=== PATIENT | male | born 1995 | race Two or more races ===

== ENCOUNTER 2024-07-08 11:08 | Emergency (ER) | payer MEDICAID, SELFPAY ==
[2024-07-08 11:23] VITALS: BP 131/80; PULSE 115; RESP 18; TEMP 38.1; O2SAT 99
--- NOTE | 2024-07-08 11:35 | PD.EDRME ---
Rapid Medical Screening Exam RME Arrival date/time: 07/08/24 11:08 29-year-old male presents to the emergency with history of ankylosing spondylitis and multiple blood clots presents emerged part today for concerns of blood clot in his penis Chief Complaint: Urogenital-Male Vital signs: Vital Signs Temperature 100.5 F H 07/08/24 11:23 Pulse Rate 115 H 07/08/24 11:23 Respiratory Rate 18 07/08/24 11:23 Blood Pressure 131/80 H 07/08/24 11:23 Pulse Oximetry (%) 99 07/08/24 11:23 Oxygen Delivery Method Room Air 07/08/24 11:23
[2024-07-08 12:17] LABS: Basophils % (Auto) 1 % (0-2.5); Eosinophils # (Auto) 0.1 Thou/mm3 (0.0-0.5); Eosinophils % (Auto) 1 % (0-10); Hematocrit 36.8 % (41.0-53.0); Hemoglobin 11.9 g/dL (13.5-16.0); Immature Granulocytes % (Auto) 0 % (0-0); Immature Granulocytes Auto 0.02 Thou/mm3 (0.00-0.00); Lymphocytes # (Auto) 0.8 Thou/mm3 (1.0-4.8); Lymphocytes % (Auto) 9 % (10-50); Mean Corpuscular HGB Conc 32.3 g/dl (31.0-37.0); Mean Corpuscular Hemoglobin 23.8 pg (25.0-35.0); Mean Corpuscular Volume 74 fL (80-100); Monocytes # (Auto) 0.2 Thou/mm3 (0.0-0.8); Monocytes % (Auto) 3 % (0-12); Neutrophils # (Auto) 7.5 Thou/mm3 (1.8-7.7); Neutrophils % (Auto) 87 % (37-80); Nucleated Red Blood Cell % 0 /100 WBC (0); Platelet Count 309 Thou/mm3 (140-440); Red Blood Count 4.99 Miln/mm3 (4.50-5.90); White Blood Count 8.6 Thou/mm3 (3.8-10.6)
--- NOTE | 2024-07-08 12:18 | XR_ITS ---
Examination: CT abdomen and pelvis without contrast. Coronal 3-D reconstructions. Sagittal 2-D reconstructions. Date and time of exam:July 08, 2024 1237 hours Comparison April 05, 2017 INDICATIONS: Penile pain today CTDI: vol (mGy): 5.53 DLP: (mGycm): 327 Technique: Axial images of the abdomen have been obtained, 3 mm slice thickness Intravenous contrast material has not been administered. Low dose protocols were performed. One or more of the following dose reduction techniques were used; automated exposure control, adjustment of the mA and/or KV according to patient size, use of iterative reconstruction technique. Findings: No focal liver or splenic lesions No gallstones No pancreatic mass Subcentimeter periaortic lymph nodes No renal or ureteral calculi, no hydronephrosis Aorta normal size No bowel obstruction Normal appendix No diverticulitis Urinary bladder wall is thickened up to 6 mm No prostatomegaly No stones project in the prostatic or penile urethra The penile urethra does appear dilated with mild hyperdensity in the distal penile urethra, sagittal image 75 consistent with blood clot IMPRESSION: No renal or ureteral calculi The penile urethra does appear dilated with blood in the distal penile urethra, consider stricture of the distal penile urethra, recommend urology consultation
--- NOTE | 2024-07-08 12:25 | XR_ITS ---
Examination: Ultrasound soft tissue penis TECHNIQUE: Grayscale sonographic images soft tissue penis Exam date and time: July 08, 2024 1306 hours INDICATIONS: Pain with intercourse and bleeding from the penis 2 weeks FINDINGS: Thrombus in the dorsal vein of the penis at the area concern IMPRESSION: Thrombus in the dorsal vein of the penis at the area concern
[2024-07-08 12:32] LABS: INR 1.1 (0.9-1.3); Partial Thromboplastin Time 36.5 Seconds (22.0-36.0); Prothrombin Time 11.5 Seconds (9.0-12.2)
[2024-07-08 12:35] LABS: Collection Type, Urine Clean Catch
[2024-07-08 12:42] LABS: Alanine Aminotransferase 10 U/L (10-49); Albumin, Serum 3.9 gm/dL (3.5-5.0); Albumin/Globulin Ratio 0.8 (1.2-2.2); Alkaline Phosphatase 84 U/L (46-116); Anion Gap 8 (7-16); Aspartate Amino Transferase 15 U/L (0-34); BUN/Creatinine Ratio 15 Ratio (12-20); Bilirubin,Total 0.4 mg/dL (0.3-1.2); Blood Urea Nitrogen 12 mg/dL (9-23); Calcium (Corrected) 9.1 mg/dL (8.5-10.1); Carbon Dioxide 25.7 mMol/L (20.0-31.0); Chloride 103 mMol/L (98-107); Creatinine (Component) 0.8 mg/dL (0.6-1.3); Globulin 4.9 gm/dL (2.3-3.5); Glucose 108 mg/dL (74-106); Osmolality,Calculated 274 (275-295); Potassium 4.5 mMol/L (3.4-5.1); Sodium 137 mMol/L (136-145); Total Protein 8.8 gm/dL (5.7-8.2); eGFR > 60 See Note
[2024-07-08 12:52] LABS: Bilirubin,Urine Negative (Negative); Blood,Urine Negative (Negative); Clarity,Urine Clear (Clear/Hazy); Color,Urine Lt-Yellow (Lt Yel-Yel); Culture Indicated,Urine Not Indicated; Glucose, Urine Negative (Negative); Ketones,Urine Negative (Negative); Leukocyte Esterase,Urine Negative (Negative); Nitrite,Urine Negative (Negative); PH,Urine 7.5 (5.0-7.0); Protein,Urine 1+ (Neg - Trace); RBC,Urine 5 /hpf (0-3); Specific Gravity,Urine 1.018 (1.001-1.035); Squamous Epithelial Cell,Urine < 1 /hpf (0-5); Urobilinogen,Urine Negative mg/dL (0.0-1.0); WBC,Urine 1 /hpf (0-5)
[2024-07-08 13:17] LABS: Hepatitis A Antibody IgM Non Reactive (Non React); Hepatitis B Core Antibody IgM Non Reactive (Non React); Hepatitis B Surface Antigen Non Reactive (Non React); Hepatitis C Antibody Non Reactive (Non React)
[2024-07-08 16:40] LABS: Chlamydia trachomatis PCR Negative (Not Detect); Neisseria Gonorrhoeae DNA PCR Negative (Not Detect); Trichomonas Negative (Negative)
[2024-07-08 17:05] VITALS: BP 113/79; PULSE 97; RESP 18; TEMP 36.9; O2SAT 99
--- NOTE | 2024-07-08 17:37 | EDNOTE_ITS ---
ED General RME/HPI General Chief complaint: Urogenital-Male Stated complaint: PENILE PAIN AND SWELLING FEELS LIKE A BLOOD CLOT Arrival date/time: 07/08/24 11:08 RME / HPI RME / HPI narrative: Patient is 29 years old male with past medical history of ankylosing spondylitis and DVT on Eliquis presented to the ED due to pain in his penis. He reports pain started after unprotected sexual intercourse with his girlfriend and his penis became swollen and bluish. He also reports mild pain is right above dorsum of his penis. His pain was severe when the event happened but improved significantly since then. He had difficulty to achieve erection since then. He reports he never had the symptoms before. He was started on Eliquis 1 year ago due to DVT but skips it frequently and was not taking it for several days prior to the event. He denies fever, chills, chest pain, shortness of breath, abdominal pain, penile discharge, testicular pain, dysuria symptoms. Related Data Previous Rx's ?Medication ?Instructions ?Recorded omeprazole 20 mg capsule,delayed 20 mg PO QDAY ##30 release Hydrocodone/Acetaminophen * (NORCO 1 tab PO Q6H PRN PA IN #12 tabs 04/05/17 5/325 *) ibuprofen 600 mg tablet 1 tab PO Q8HR PRN INFLAMMATI ON #30 04/05/17 tabs apixaban 5 mg (74 tabs) tablets in 5 mg PO BID #74 tab s 06/25/23 a dose pack (Eliquis DVT-PE Treat 30D Start) apixaban 5 mg (74 tabs) tablets in 5 mg PO BID #74 tab s 10/19/23 a dose pack (Eliquis DVT-PE Treat 30D Start) hydrocodone 5 mg-acetaminophen 325 1 tab PO Q8H PRN pa in #10 tabs 07/08/24 mg tablet Allergies Allergy/AdvReac Type Severity Reaction Status Date / Time No Known Allergies Allergy Verified 07/08/24 11:13 Review of Systems Review of Systems Systems Reviewed: All systems reviewed, normal except as documented ED Exam Narrative Physical exam: Gen: Well-developed and well-nourished male. HEENT: NCAT, PERRLA, EOMI, MMM, anicteric conjunctivae. CVS: normal S1 and S2. RRR. No M/R/G. Resp: CTA B/L. No rhonchi, rales, crackles or wheezing. Abd: soft, non-tender, non-distended. BS+ in all 4 quadrants. : Tender mass over the right lateral side of his penis, feels like strings on palpation. Tenderness right over the dorsum of the penis. No suprapubic or CVA tenderness. MSK: Good ROM in BUE & BLE. No edema or rash. Left knee is swollen and nontender to touch. Neuro: CN II-XII grossly intact. Strength 5/5 in BUE & BLE. Alert and oriented x3. Psych: appropriate mood and affect. Course Quality Measures none Orders Category Date Time Status CT abdomen pelvis wo con Stat Exams 07/08/24 12:18 Completed US soft tissue lower back abd Stat Exams 07/08/24 12:25 Completed CBC Stat Lab 07/08/24 11:42 Completed Chlamydia/GC/TV - PCR Stat Lab 07/08/24 12:15 Completed Comprehensive Metabolic Panel Stat Lab 07/08/24 11:42 Completed Hepatitis Acute Panel Stat Lab 07/08/24 11:42 Completed PT [Prothrombin Time with INR] Stat Lab 07/08/24 11:42 Completed PTT [Partial Thromboplastin Time] Stat Lab 07/08/24 11:42 Completed UA, C/S IF [Urinalysis, C/S if Indicated] Stat Lab 07/08/24 12:15 Completed Vital Signs Vital signs: Vital Signs Temperature 100.5 F H 07/08/24 11:23 Pulse Rate 115 H 07/08/24 11:23 Respiratory Rate 18 07/08/24 11:23 Blood Pressure 131/80 H 07/08/24 11:23 Pulse Oximetry (%) 99 07/08/24 11:23 Oxygen Delivery Method Room Air 07/08/24 11:23 [facility] Patient data External records reviewed:: [facility] previous records Clinical information provided by:: patient Social determinants that could affect healthcare access:: none Patient has the following chronic illnesses:: ankylosing spondylitis and DVT on Eliquis How is presenting disease/condition affected by chronic disease/condition?: c aused by Evaluation data The following diagnostics were reviewed and interpreted by me:: lab results and radiology exam(s) Lab and/or radiology exams considered but not ordered:: CT AP Interpretation Summary: Thrombus in the dorsal vein of the penis at the area concern Medications Medications considered but not ordered:: na Medication administrations:: na Consultations Consultation(s) initiated? 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 Admission Request Was there a request for admission?: No Disposition Plan Disposition Plan: Discharge Discharge Attestation Discharge Attestation: The patient and all family members were given an opportunity to ask questions and understood the discharge instructions. Discharge instructions specifically effects, indications for sooner follow up or return to the emergency department, and the expected course of current diagnosis. Patient condition: Stable Medical Decision Making Differential Diagnosis Differential Diagnosis: Penile Mondor's Disease, ischemic priapism, trauma, STD Lab Data 07/08/24 11:42 07/08/24 11:42 Labs: Lab Results 07/08/24 07/08/24 Range/Units 11:42 12:15 WBC 8.6 (3.8-10.6) Thou/mm3 RBC 4.99 (4.50-5.90) Miln/mm3 Hgb 11.9 L (13.5-16.0) g/dL Hct 36.8 L (41.0-53.0) % MCV 74 L (80-100) fL MCH 23.8 L (25.0-35.0) pg MCHC 32.3 (31.0-37.0) g/dl RDW Std Deviation 46.0 H (35.1-43.9) fL Plt Count 309 (140-440) Thou/mm3 Neut % (Auto) 87 H (37-80) % Lymph % (Auto) 9 L (10-50) % [place] % (Auto) 3 (0-12) % Eos % (Auto) 1 (0-10) % Baso % (Auto) 1 (0-2.5) % Neut # (Auto) 7.5 (1.8-7.7) Thou/mm3 Lymph # (Auto) 0.8 L (1.0-4.8) Thou/mm3 [place] # (Auto) 0.2 (0.0-0.8) Thou/mm3 Eos # (Auto) 0.1 (0.0-0.5) Thou/mm3 Baso # (Auto) 0.0 (0.0-0.2) Thou/mm3 Immature Gran # (Auto) 0.02 H (0.00-0.00) Thou/mm3 Absolute Nucleated RBC 0.00 (0.00-0.00) Thou/mm3 Immature Gran % 0 (0-0) % Nucleated RBC % 0 (0) /100 WBC PT 11.5 (9.0-12.2) Seconds INR 1.1 (0.9-1.3) APTT 36.5 H (22.0-36.0) Seconds Sodium 137 (136-145) mMol/L Potassium 4.5 (3.4-5.1) mMol/L Chloride 103 (98-107) mMol/L Carbon Dioxide 25.7 (20.0-31.0) mMol/L Anion Gap 8 (7-16) BUN 12 (9-23) mg/dL Creatinine 0.8 (0.6-1.3) mg/dL Estim Creat Clear Calc Not Performed. eGFR > 60 (60 - ) See Note BUN/Creatinine Ratio 15 (12-20) Ratio Glucose 108 H (74-106) mg/dL Calculated Osmolality 274 L (275-295) Calcium 9.0 (8.3-10.6) mg/dL Corrected Calcium 9.1 (8.5-10.1) mg/dL Total Bilirubin 0.4 (0.3-1.2) mg/dL AST 15 (0-34) U/L ALT 10 (10-49) U/L Alkaline Phosphatase 84 (46-116) U/L Total Protein 8.8 H (5.7-8.2) gm/dL Albumin 3.9 (3.5-5.0) gm/dL Globulin 4.9 H (2.3-3.5) gm/dL Albumin/Globulin Ratio 0.8 L (1.2-2.2) Ur Collection Type Clean Catch Urine Color Lt-Yellow (Lt Yel-Yel) Urine Clarity Clear (Clear/Hazy) Urine pH 7.5 H (5.0-7.0) Ur Specific [place] 1.018 (1.001-1.035) Urine Protein 1+ A (Neg - Trace) Urine Glucose (UA) Negative (Negative) Urine Ketones Negative (Negative) Urine Blood Negative (Negative) Urine Nitrite Negative (Negative) Urine Bilirubin Negative (Negative) Urine Urobilinogen (Auto) Negative (0.0-1.0) mg/dL Ur Leukocyte Esterase Negative (Negative) Urine RBC 5 H (0-3) /hpf Urine WBC 1 (0-5) /hpf Ur Squamous Epith Cells < 1 (0-5) /hpf Urine Bacteria None (None) Ur Culture Indicated? Not Indicated Chlam trachomat DNA PCR Negative (Not Detect) Hepatitis A IgM Ab Non Reactive (Non React) Hep Bs Antigen Non Reactive (Non React) Hep B Core IgM Ab Non Reactive (Non React) Hepatitis C Antibody Non Reactive (Non React) N.gonorrhoeae DNA (PCR) Negative (Not Detect) Trichomonas DNA Probe Negative (Negative) Discharge Plan Plan Patient Disposition: HOME (Self Care) Patient condition on transfer: Stable Prescriptions/Referrals Prescriptions/Med Rec: New hydrocodone-acetaminophen 5-325 mg tablet 1 tab PO Q8H MDD 15 mg PRN (Reason: pain) Qty: 10 0RF No Action omeprazole 20 MG capsule,delayed release(DR/EC) 20 mg PO QDAY Qty: 30 0RF ibuprofen 600 MG tablet 1 tab PO Q8HR PRN (Reason: INFLAMMATION) Qty: 30 0RF Hydrocodone/Acetaminophen * (NORCO 5/325 *) 1 TAB tablet 1 tab PO Q6H PRN (Reason: PAIN) Qty: 12 0RF Eliquis DVT-PE Treat 30D Start 5 mg (74 tabs) tablets,dose pack 5 mg PO BID Qty: 74 0RF Eliquis DVT-PE Treat 30D Start 5 mg (74 tabs) tablets,dose pack 5 mg PO BID Qty: 74 0RF Rx Instructions: 10 mg p.o. twice daily for 7 days followed by 5 mg p.o. twice daily for the rest Referrals: Kristy Christianson PA-C [Primary Care Provider] - In 1 week Problem List Clinical Impression: Thrombosis of penile vein Patient/Caregiver Discharge Instructions Additional Instructions: Continue home medications as prescribed including Eliquis. Do not skip doses of Eliquis. Take [place] 1 tab as needed every 6 hours. Follow up with PCP within 1 week and obtain urology referral. Return to the ED if symptoms recur or worsen. Print Language: Congolese Stand Alone Forms: [facility] Award Info., Patient Portal Info Letter
== END 2024-07-08 18:36 | disposition home or self-care (01) ==
PROVIDERS: Nurse Practitioner Primary Care; Emergency Provider Emergency Medicine; PCP Physician Assistant Medical
DX: N48.81 Thrombosis of superficial vein of penis (principal)
CPT/HCPCS: 36415; 74176; 76705; 80053; 80074; 81001; 85025; 85610; 85730; 87491; 87591; 87661; 99284

== ENCOUNTER 2024-08-17 07:57 | Outpatient (RCR) | payer MEDICAID, SELFPAY | END 2024-09-11 23:59 | disposition home or self-care (01) | LOC: SCTC 07:57 | PROVIDERS: PCP Physician Assistant Medical; Referring Provider Physician Assistant Medical; Visit Provider Nurse Practitioner Family | DX: Z09 Encounter for follow-up examination after completed treatment for conditions other than malignant neoplasm (principal); Z86.718 Personal history of other venous thrombosis and embolism; Z79.01 Long term (current) use of anticoagulants; R63.4 Abnormal weight loss; Z68.22 Body mass index [BMI] 22.0-22.9, adult; R00.2 Palpitations; N52.9 Male erectile dysfunction, unspecified; F32.A Depression, unspecified; M45.9 Ankylosing spondylitis of unspecified sites in spine | CPT/HCPCS: 99213; G0463 ==

== ENCOUNTER → 2024-10-20 | Outpatient (CLI) | payer MEDICAID, SELFPAY ==
--- NOTE | 2024-10-20 14:30 | ECHO_ITS ---
Transthoracic Echo Report Ht (in): 69 Wt (lb): 150 Exam Location: Echo Lab Status: Preadmit Envelope Adjuster: Courtney Bell Indications: Procedure Performed: BP: / HR: Technical Quality: Adequate MEASUREMENTS (Male / Female) Normal Values 2D ECHO LV Diastolic Diameter PLAX 4.3 cm 4.2 - 5.9 / 3.9 - 5.3 cm LV Systolic Diameter PLAX 2.9 cm IVS Diastolic Thickness 0.9 cm 0.6 - 1.0 / 0.6 - 0.9 cm LVPW Diastolic Thickness 0.9 cm 0.6 - 1.0 / 0.6 - 0.9 cm LV Relative Wall Thickness 0.4 LVOT Diameter 1.9 cm LA Volume Index 25.5 cm?/m? 16 - 28 cm?/m? Ascending Aorta Diameter 2.1 cm DOPPLER AV Peak Velocity 119.0 cm/s AV Peak Gradient 5.7 mmHg LVOT Peak Velocity 105.0 cm/s LVOT Peak Gradient 4.4 mmHg AV Area Cont Eq pk 2.5 cm? MV Area PHT 5.2 cm? Mitral E Point Velocity 77.1 cm/s Mitral A Point Velocity 69.4 cm/s Mitral E to A Ratio 1.1 LV E' Lateral Velocity 17.3 cm/s Mitral E to LV E' Lateral Ratio 4.5 LV E' Septal Velocity 8.2 cm/s Mitral E to LV E' Septal Ratio 9.4 PV Peak Velocity 81.4 cm/s PV Peak Gradient 2.7 mmHg FINDINGS Left Ventricle Normal left ventricular size, wall thickness, systolic function with no obvious regional wall motion abnormalities. Normal left ventricular diastolic filling pattern for age. The ejection fraction is visually estimated at 60 %. Right Ventricle The right ventricle is normal in size and systolic function. The estimated right ventricular systolic pressure can not be determined due to innadequate tricuspid signal. Left Atrium The left atrium is normal by two-dimensional, color flow and Doppler imaging with no structural abnormalities, no thrombus formation present. Right Atrium The right atrium is normal by two-dimensional imaging, color flow and Doppler imaging with no structural abnormalities, no thrombus formation present. Atrial Septum The interatrial septum appears normal with no evidence of a shunt. Aorta The aorta is normal by two-dimensional, color flow and Doppler interrogation. Mitral Valve The mitral valve is normal by two-dimensional, color flow and Doppler interrogation. There is trace mitral regurgitation. Aortic Valve The aortic valve is trileaflet and normal by two-dimensional, color flow and Doppler interrogation. There is no significant aortic valve regurgitation. Tricuspid Valve The tricuspid valve is normal by two-dimensional, color flow and Doppler interrogation. There is no significant tricuspid valve regurgitation. Pulmonic Valve The pulmonic valve is not well visualized. There is no significant pulmonic valve regurgitation. Vessels The pulmonary artery appears normal. The inferior vena cava pulmonary and hepatic veins appear normal. Pericardium The pericardium is normal by two-dimensional imaging. There is no significant pericardial effusion. CONCLUSIONS Indication: Acute Embolism Normal LV. Estimated EF 60%. Normal Diastology Normal RV. Trace MR. No Pericardial Effusion. Lottie Hanley (Electronically Signed) Final Date: 20 October 2024 16:32
== END | disposition home or self-care (01) ==
LOC: SDIM 14:41
PROVIDERS: PCP Physician Assistant Medical; Referring Provider Nurse Practitioner Family; Visit Provider Nurse Practitioner Family
DX: I82.409 Acute embolism and thrombosis of unspecified deep veins of unspecified lower extremity (principal)
CPT/HCPCS: 93306

== ENCOUNTER 2025-02-12 20:01 | Emergency (ER) | payer MEDICAID, SELFPAY ==
[2025-02-12 20:02] VITALS: BMI 20.7
--- NOTE | 2025-02-12 20:25 | XR_ITS ---
Examination: CT brain head without contrast. 2-D sagittal coronal reconstructions Date and time of exam: February 12, 2025, 2111 hours INDICATIONS: Syncopal episode today CTDI: vol (mGy): 45.9 DLP: (mGycm): 919 Technique: Multiple CT axial sections of the brain have been obtained, 5 mm slice thickness. Contrast has not been administered. 2-D sagittal, coronal reconstructions have been obtained Low dose protocols were performed. One or more of the following dose reduction techniques were used; automated exposure control, adjustment of the mA and/or KV according to patient size, use of iterative reconstruction technique. Findings: No significant ventricular enlargement. Intra-axial or extra-axial hemorrhage density is not seen. No mass effect or midline shift Basal cisterns are not remarkable. Fourth ventricle is midline. Cranial vault intact. Impression: Negative for acute hemorrhage, mass effect or midline shift Advise clinical correlation and follow-up accordingly
--- NOTE | 2025-02-12 20:26 | EKG_ITS ---
[facility], [place] Test Date: 2025-02-12 Pat Name: ZEKE CLINTON Department: Room: - Gender: Male Echocardiography Radiology Technologist: : 1995 Requested By: Jaspreet Amezcua Order Number: [id number] Reading MD: Jaspreet Amezcua Measurements Intervals [place] Rate: 85 P: 66 W[place]: 128 QRS: 78 QRSD: 88 T: 53 QT: 325 QTc: 387 Interpretive Statements SINUS RHYTHM No previous ECG available for comparison /store/S0/[id number]/[id number].pdf
--- NOTE | 2025-02-12 20:26 | XR_ITS ---
EXAMINATION: PA chest single view TECHNIQUE: Upright PA chest single view Date and time: ., 2024, 2045 hours INDICATIONS: Syncopal episode today with chest pain FINDINGS: Normal heart size No aspiration pneumonia. No mediastinal lymphadenopathy. The osseous fractures are intact IMPRESSION: No aspiration pneumonia
--- NOTE | 2025-02-12 20:27 | EDNOTE_ITS ---
ED Syncope RME/HPI General Chief Complaint: Syncope / Near Syncope Stated Complaint: SYNCOPE EPISODE Time Seen by Provider: 02/12/25 20:24 Arrival date/time: 02/12/25 20:01 RME / HPI RME / HPI narrative: See [facility] for Dr. Medina's HPI Documentation. Related Data Previous Rx's ?Medication ?Instructions ?Recorded omeprazole 20 mg capsule,delayed 20 mg PO QDAY ##30 release Hydrocodone/Acetaminophen * (NORCO 1 tab PO Q6H PRN PA IN #12 tabs 04/05/17 5/325 *) ibuprofen 600 mg tablet 1 tab PO Q8HR PRN INFLAMMATI ON #30 04/05/17 tabs apixaban 5 mg (74 tabs) tablets in 5 mg PO BID #74 tab s 06/25/23 a dose pack (Eliquis DVT-PE Treat 30D Start) apixaban 5 mg (74 tabs) tablets in 5 mg PO BID #74 tab s 10/19/23 a dose pack (Eliquis DVT-PE Treat 30D Start) hydrocodone 5 mg-acetaminophen 325 1 tab PO Q8H PRN pa in #10 tabs 07/08/24 mg tablet Allergies Allergy/AdvReac Type Severity Reaction Status Date / Time No Known Allergies Allergy Verified 07/08/24 11:13 Review of Systems Review of Systems Systems Reviewed: All systems reviewed, normal except as documented Past Medical History Past Medical History CARDIAC: Positive Deep Vein Thrombosis OTHER HISTORY: Positive Autoimmune Disease ED Exam Narrative Physical exam: See [facility] for Dr. Medina's Physical Exam Documentation. Course Quality Measures none Orders Category Date Time Status CT Screening NOW Care 02/12/25 21:43 Completed EKG (ED ONLY) *Do not use* NOW Care 02/12/25 20:26 Completed Orthostatic Vitals NOW Care 02/12/25 20:25 Completed Saline [Insert IV] NOW Care 02/12/25 20:[address] angio chest Stat Exams 02/12/25 21:[address] head/brain wo con Stat Exams 02/12/25 20:25 Completed EKG (ED Only) Stat Exams 02/12/25 20:26 Draft XR chest 1V portable Stat Exams 02/12/25 20:26 Completed BMP [Basic Metabolic Panel] Stat Lab 02/12/25 20:35 Completed BNP [B-Type Natriuretic Peptide] Stat Lab 02/12/25 20:35 Completed CBC Stat Lab 02/12/25 20:35 Completed D-Dimer Stat Lab 02/12/25 20:35 Completed Drug Screen,Urine Stat Lab 02/12/25 21:00 Completed Magnesium Stat Lab 02/12/25 20:35 Completed TSH [Thyroid Stimulating Hormone] Stat Lab 02/12/25 20:35 Completed Troponin I Stat Lab 02/12/25 20:35 Completed UA, C/S IF [Urinalysis, C/S if Indicated] Stat Lab 02/12/25 21:00 Completed ALPRazoLAM [Xanax] Med 02/12/25 20:25 Discontinued 0.5 mg PO X1 ONE Ondansetron Inj [Zofran Inj] Med 02/12/25 20:25 Discontinued 4 mg IVP X1 ONE Sodium Chloride 0.9% 1000 ml [Ns] 1,000 ml Med 02/12/25 20:25 Discontinued IV 999 mls/hr Vital Signs Vital signs: Vital Signs Temperature 98.2 F 02/12/25 20:50 Pulse Rate 80 02/12/25 20:50 Respiratory Rate 16 02/12/25 20:50 Blood Pressure 122/81 02/12/25 20:50 Pulse Oximetry (%) 100 02/12/25 20:50 Oxygen Delivery Method Room Air 02/12/25 20:50 Syncope MDM Narrative MDM Narrative:: This section includes all my notes and documentations, including HPI, PE, and ED course. Jaspreet Medina MD HPI: 29 y/o male here after passing out at home about 30 minutes ago. Was sitting in his couch. When he woke up about 30 minutes later after probable passing out. Currently, he reports feeling lightheaded with palpitations. No other complaints. ROS: All negative except as documented in HPI. Physical Exam: General: Alert and oriented. No acute distress when remaining still. Eyes: Conjunctivae and lids clear. PERRL. EOMI. ENT: No nasal congestion. Neck: Supple. No carotid bruit. No JVD. Heart: RRR. Lungs: No respiratory distress. Good air movement. No rhonchi, wheezing, rales. Abdomen: Soft and nontender. Normal bowel sounds. No distension. No rebound or guarding. Back: No CVA tenderness. Skin: Warm and dry. Neuro: Alert and oriented X 3. Cranial nerves II through XII grossly normal. No peripheral motor deficits. I reviewed all diagnostic test results: My interpretation of the EKG is sinus rhythm with no acute ST?T changes. My interpretation of the chest x-ray is: NAD. My review of the Head/Brain CT report is: NAD. My review of the Chest CTA report is: No PE. Blood tests and urine tests remarkable for D-dimer 1820. At this point, diagnoses include: Syncope, unclear etiology Treatment here included: IVF Xanax 0.5 mg Zofran 4 mg Patient remained stable. Recommended more outpatient management. Based on my best medical judgment, made decision no further evaluation or treatment indicated at this time. Patient understands and agrees to the discharge instructions customized and printed, see below. Discharge instructions from Dr. Medina: 1. After extensive evaluation, there is no life-threatening condition. Such as stroke or brain tumor or heart attack or pulmonary embolism (blood clots in your lungs) or pneumothorax (collapsed lung). 2. See a private doctor on 02/13/2025. Ask to review all test results and official radiology reports, to make sure you receive all necessary follow-ups and monitoring. To make sure there is no serious underlying heart condition, ask to help you get more tests for your heart that cannot be done here in the ER. Such as Holter Monitor (cardiac monitoring at home from a day to even a month), heart stress test (on treadmill or with medication), echocardiogram (imaging of your heart structures), heart catherization (checking for blockages in your heart arteries), and a referral to see a Pediatric Acute Care Unit Nurse. Ask to consider brain MRI imaging studies and referral to see neurologist. 3. Seek immediate medical care with worsening or with any concerns. Jaspreet Medina MD Patient data External records reviewed:: [facility] previous records (Reviewed prior ED records from 07/08/24. Patient was seen for Thrombosis of penile vein.) Clinical information provided by:: patient Social determinants that could affect healthcare access:: none Patient has the following chronic illnesses:: DVT How is presenting disease/condition affected by chronic disease/condition?: exacerbated by Evaluation data The following diagnostics were reviewed and interpreted by me:: lab results, radiology exam(s) and EKG tracing(s) Lab and/or radiology exams considered but not ordered:: None Interpretation Summary: I reviewed all diagnostic test results: My interpretation of the EKG is sinus rhythm with no acute ST?T changes. My interpretation of the chest x-ray is: NAD. My review of the Head/Brain CT report is: NAD. My review of the Chest CTA report is: No PE. Blood tests and urine tests remarkable for D-dimer 1820. Medications / Prescriptions Medications or Prescriptions considered but not ordered:: None Medication administrations:: Medication Administration History Discontinued Medications Alprazolam (Alprazolam 0.25 Mg Tablet) 0.5 mg PO X1 ONE Stop: 02/12/25 20:26 Last Admin: 02/12/25 20:44 Dose: Not Given Documented By: LEYLA Non-Admin Reason: Patient Refused Sodium Chloride (Ns) 1,000 mls @ 999 mls/hr IV .Q1H1M ONE Stop: 02/12/25 21:25 Last Infusion: 02/12/25 22:15 Dose: Infused Documented By: Admin: 02/12/25 20:44 Dose: 999 mls/hr Documented By: LEYLA Ondansetron HCl (Ondansetron Inj 2 Mg/Ml Inj 2 Ml) 4 mg IVP X1 ONE; Protocol Stop: 02/12/25 20:26 Last Admin: 02/12/25 20:45 Dose: Not Given Documented By: LEYLA Non-Admin Reason: Patient Refused IVF Xanax 0.5 mg Zofran 4 mg Consultations Consultation(s) initiated? (list below): No Diagnosis Syncope Differential Diagnosis: syncope due to orthostatic hypotension, vasovagal syncope, complete atrioventricular block, subarachnoid hemorrhage, pulmonary embolism and dehydration Most likely diagnosis given after review of the tests above:: Syncope, unclear etiology Admission Indicated Admission indicated?: not indicated Explain why admission is indicated or not indicated:: With no condition needing emergent intervention, there was no indication for admission. Admission Request Was there a request for admission?: No Disposition Plan Disposition Plan: Discharge Discharge Attestation Discharge Attestation: The patient and all family members were given an opportunity to ask questions and understood the discharge instructions. Discharge instructions specifically effects, indications for sooner follow up or return to the emergency department, and the expected course of current diagnosis. Patient condition: Stable Discharge Plan Plan Patient Disposition: HOME (Self Care) Prescriptions/Referrals Prescriptions/Med Rec: No Action omeprazole 20 MG capsule,delayed release(DR/EC) 20 mg PO QDAY Qty: 30 0RF ibuprofen 600 MG tablet 1 tab PO Q8HR PRN (Reason: INFLAMMATION) Qty: 30 0RF Hydrocodone/Acetaminophen * (NORCO 5/325 *) 1 TAB tablet 1 tab PO Q6H PRN (Reason: PAIN) Qty: 12 0RF Eliquis DVT-PE Treat 30D Start 5 mg (74 tabs) tablets,dose pack 5 mg PO BID Qty: 74 0RF Eliquis DVT-PE Treat 30D Start 5 mg (74 tabs) tablets,dose pack 5 mg PO BID Qty: 74 0RF Rx Instructions: 10 mg p.o. twice daily for 7 days followed by 5 mg p.o. twice daily for the rest hydrocodone-acetaminophen 5-325 mg tablet 1 tab PO Q8H MDD 15 mg PRN (Reason: pain) Qty: 10 0RF Referrals: Kristy Christianson PA-C [Primary Care Provider] - In 1 week Problem List Clinical Impression: Syncope Patient/Caregiver Discharge Instructions Discharge Activity: activity as tolerated Education Materials: ED Fainting, Uncertain Cause Additional Instructions: Discharge instructions from Dr. Medina: 1. After extensive evaluation, there is no life-threatening condition. Such as stroke or brain tumor or heart attack or pulmonary embolism (blood clots in your lungs) or pneumothorax (collapsed lung). 2. See a private doctor on 02/13/2025. Ask to review all test results and official radiology reports, to make sure you receive all necessary follow-ups and monitoring. To make sure there is no serious underlying heart condition, ask to help you get more tests for your heart that cannot be done here in the ER. Such as Holter Monitor (cardiac monitoring at home from a day to even a month), heart stress test (on treadmill or with medication), echocardiogram (imaging of your heart structures), heart catherization (checking for blockages in your heart arteries), and a referral to see a Pediatric Acute Care Unit Nurse. Ask to consider brain MRI imaging studies and referral to see neurologist. 3. Seek immediate medical care with worsening or with any concerns. Print Language: Com[place] Stand Alone Forms: [facility] Award Info., Patient Portal Info Letter
[2025-02-12] MEDS: SODIUM CHLORIDE 0.9% 1000 ML 1,000 ML 999 ML IV (20:44)
[2025-02-12 20:50] VITALS: BP 122/81; PULSE 80; RESP 16; TEMP 36.8; O2SAT 100
[2025-02-12 20:52] VITALS: BP 127/76; BP 135/83; BP 144/87; PULSE 104; PULSE 87; PULSE 92
[2025-02-12 21:01] LABS: Basophils # (Auto) 0.0 Thou/mm3 (0.0-0.2); Basophils % (Auto) 1 % (0-2.5); Eosinophils # (Auto) 0.1 Thou/mm3 (0.0-0.5); Eosinophils % (Auto) 1 % (0-10); Hematocrit 39.6 % (41.0-53.0); Hemoglobin 12.3 g/dL (13.5-16.0); Immature Granulocytes Auto 0.01 Thou/mm3 (0.00-0.00); Lymphocytes # (Auto) 2.0 Thou/mm3 (1.0-4.8); Lymphocytes % (Auto) 29 % (10-50); Mean Corpuscular HGB Conc 31.1 g/dl (31.0-37.0); Mean Corpuscular Hemoglobin 23.7 pg (25.0-35.0); Mean Corpuscular Volume 76 fL (80-100); Monocytes # (Auto) 0.4 Thou/mm3 (0.0-0.8); Monocytes % (Auto) 6 % (0-12); Neutrophils # (Auto) 4.3 Thou/mm3 (1.8-7.7); Neutrophils % (Auto) 63 % (37-80); Nucleated Red Blood Cell # 0.00 Thou/mm3 (0.00-0.00); Nucleated Red Blood Cell % 0 /100 WBC (0); Platelet Count 393 Thou/mm3 (140-440); RDW Standard Deviation 47.3 fL (35.1-43.9); Red Blood Count 5.19 Miln/mm3 (4.50-5.90); White Blood Count 6.8 Thou/mm3 (3.8-10.6)
[2025-02-12 21:19] LABS: D-Dimer 1820 ng/mL (<600)
[2025-02-12 21:25] LABS: B-Type Natriuretic Peptide < 20 pg/mL (0-100)
[2025-02-12 21:30] LABS: Collection Type, Urine Clean Catch; Squamous Epithelial Cell,Urine 0 /hpf (0-5)
[2025-02-12 21:31] LABS: Anion Gap 7 (7-16); BUN/Creatinine Ratio 8 Ratio (12-20); Blood Urea Nitrogen 8 mg/dL (9-23); Calcium 9.1 mg/dL (8.3-10.6); Carbon Dioxide 28.6 mMol/L (20.0-31.0); Chloride 103 mMol/L (98-107); Creatinine (Component) 1.0 mg/dL (0.6-1.3); Estimated Creatinine Clearance 97.9 mL/min (>60); Glucose 107 mg/dL (74-106); Magnesium 2.3 mg/dL (1.6-2.6); Osmolality,Calculated 275 (275-295); Potassium 3.6 mMol/L (3.4-5.1); Sodium 139 mMol/L (136-145); Thyroid Stimulating Hormone 1.35 uIU/mL (0.55-4.78); Troponin I 0.028 ng/mL (0.0-0.045); eGFR > 60 See Note
[2025-02-12 21:43] LABS: Amorphous Crystals,Urine Present (Absent); Bilirubin,Urine Negative (Negative); Blood,Urine Negative (Negative); Budding Yeast,Urine Present; Clarity,Urine Turbid (Clear/Hazy); Color,Urine Colorless (Lt Yel-Yel); Culture Indicated,Urine Not Indicated; Glucose, Urine Negative (Negative); Ketones,Urine Negative (Negative); Leukocyte Esterase,Urine Negative (Negative); Nitrite,Urine Negative (Negative); PH,Urine 7.5 (5.0-7.0); Protein,Urine Negative (Neg - Trace); RBC,Urine 1 /hpf (0-3); Specific Gravity,Urine 1.009 (1.001-1.035); Urobilinogen,Urine Negative mg/dL (0.0-1.0); WBC,Urine 1 /hpf (0-5)
--- NOTE | 2025-02-12 21:43 | XR_ITS ---
Examination: CTA chest with intravenous contrast 2-D reconstructions 3-D reconstructions, vascular Date and time of exam: 1., 2024, 1025 hours INDICATIONS: Tachycardia cardiac palpitations shortness of breath beginning 1 week ago CTDI: vol (mGy) 17.25 DLP: (mGycm) 320 Technique: Multiple axial sections of the thorax have been obtained. 3 mm slice thickness, from below the hemidiaphragms to above the apices of the lungs. Mediastinal and lung density settings have been obtained. 2-D sagittal and coronal reconstructions. 3-D angiographic renderings, 3-D volume renderings, 3D post processing, vascular maximum intensity projections obtained. Contrast administered is 100 cc Isovue 370. Low dose protocols were performed. One or more of the following dose reduction techniques were used; automated exposure control, adjustment of the mA and/or KV according to patient size, use of iterative reconstruction technique. Findings: No thoracic aortic aneurysmal dilatation or dissection No pulmonary artery emboli. No paratracheal or tracheobronchial or bronchopulmonary adenopathy. No pneumonia, pulmonary edema or pleural disease No liver or splenic lesion Contracted gallbladder No pancreatic or adrenal mass No renal or ureteral calculi Osseous structures are intact IMPRESSION: Negative for pulmonary artery emboli No mediastinal adenopathy. No pneumonia or pulmonary edema or pleural disease
--- NOTE | 2025-02-12 21:49 | PC.NURSE ---
PT REFUSED CT WITH CONTRAST
[2025-02-12 22:36] LABS: Amphetamine/Methamp Scrn,U Negative (Negative); Barbiturate Screen,Urine Negative (Negative); Benzodiazepines Screen,Urine Negative (Negative); Benzoylecgonine Screen, Ur Negative (Negative); Fentanyl Screen,Urine Negative (Negative); Opiate Screen,Urine Negative (Negative); THC Screen,Urine Negative (Negative)
== END 2025-02-12 23:41 | disposition home or self-care (01) ==
PROVIDERS: Emergency Provider Emergency Medicine; PCP Physician Assistant Medical
DX: R55 Syncope and collapse (principal)
CPT/HCPCS: 36415; 70450; 71045; 71275; 80048; 80307; 81001; 83735; 83880; 84443; 84484; 85025; 85379; 93005; 96360; 96361; 99283; A4649; J7030; Q9967